=== PATIENT | female | born 1980 | race Caucasian/White ===

== ENCOUNTER 2022-02-19 18:24 | Emergency (ER) | payer BC, SELFPAY ==
--- NOTE | ~2022-02-19 | CT_ITS ---
EXAMINATION: CT abdomen pelvis wo con DATE: 02/19/2022 19:20 INDICATION: right flank pain TECHNIQUE: Computed tomography (CT) of the abdomen and pelvis was performed without intravenous contr ast. Automated exposure control and iterative reconstruction technique were employed. The dose-length product was 909.27 mGy-cm. COMPARISON: 01/30/2016. FINDINGS: Lower thorax: Moderate hiatal hernia Liver: Likely peripheral cyst or hemangioma in the right lobe. Biliary/Gallbladder: Gallbladder is absent. No bile duct dilation. Pancreas: No mass or duct dilation. Spleen: Normal. Adrenals:No mass. Kidneys: Mild right renal enlargement and perinephric stranding. Mild right hydronephrosis and periur eteral stranding. Punctate nonobstructing left lower pole calcification. GI tract: Prior gastric surgery No small or large bowel dilation. Normal appendix. Diverticulosis wit hout diverticulitis. Mesentery/Peritoneum: No ascites, mass, or free air. Retroperitoneum: No mass. Pelvis: 3 mm distal right ureteral calcification just proximal to the UVJ pelvic organs otherwise nor mal. Soft Tissues: Soft tissues and body wall unremarkable. Bones: No acute osseous finding. IMPRESSION: 3 mm distal right ureteral stone causing mild right obstructive uropathy. Reviewed, dictated and finalized at location K.
--- NOTE | 2022-02-19 18:32 | ED.ABDPAIN ---
HPI - Abdominal Pain General Chief Complaint: Urogenital-Female Stated Complaint: right side and back pain Time Seen by Provider: 02/19/22 18:26 Source: patient and RN notes reviewed Mode of arrival: ambulatory Limitations: no limitations History of Present Illness MD elicited complaint: flank pain Pertinent past history: kidney stones Onset (ago): hour(s) (2) Pain Consistency: intermittent Location: R flank Severity: moderate Quality: stabbing and sharp Radiation: RLQ Migration to: no migration Exacerbating factors: nothing Relieving factors: nothing Associated symptoms: nausea Related Data Home Medications Medication Instructions Recorded Confirmed ergocalciferol (vitamin D2) 1,250 1,250 mcg PO DAILY 02/19/22 02/19/22 mcg (50,000 unit) capsule loratadine 10 mg tablet 10 mg PO DAILY 02/19/22 02/19/22 omeprazole 20 mg capsule,delayed 20 mg PO DAILY 02/19/22 02/19/22 release Allergies Allergy/AdvReac Type Severity Reaction Status Date / Time Penicillins Allergy Mild FROM LABOR Verified 08/02/08 13:09 ORDERS ON 01-07-03 pcn Allergy Unknown Uncoded 10/11/02 13:53 Review of Systems Review of Systems: All systems reviewed & are unremarkable except as noted in HPI and below Constitutional: Constitutional: Denies chills and Denies fever(s) PMFSH Past Medical History Medical History (Updated 02/19/22 @ 19:44 by Jann Koroma MD) Anxiety GERD (gastroesophageal reflux disease) Kidney stones Surgical History Surgical History (Updated 02/19/22 @ 18:33 by Jann Koroma MD) Gastric bypass status for obesity Hx of cholecystectomy Social History Social History (Updated 02/19/22 @ 18:55 by Jann Koroma MD) Smoking status: Never smoker Exam Const: General: healthy appearing, no acute distress, alert and ill appearing acutely ( appears in pain) Nutritional Appearance: well nourished and obese Orientation/consciousness: patient oriented x3 HENMT: Head: normal to inspection Ears: external ears normal Eyes: Conjunctivae: conjunctivae normal Pupils: Equal, round and reactive pupils present EOM: EOMs intact bilaterally Neck: Neck: normal visual inspection Resp: Effort & Inspection: normal respiratory effort Auscultation: clear to auscultation bilaterally Cardio: Rate: regular rate Rhythm: regular rhythm GI: GI Palp: Yes Soft to palpation and No Tenderness to palpation present (GI) Auscultation: normal bowel sounds Back/Spine/Pelvis: Back: CVA tenderness ( moderate on the right) Cervical Spine: cervical ROM normal Thoracic/Lumbar Spine: thoraco-lumbar ROM normal Skin: General skin exam: normal color Rashes: no rashes Neuro: General: patient oriented x3, moves all extremities, no focal motor deficits and CN's II-XI intact bilaterally Speech: normal speech Gait exam (Neuro): Normal gait present Extrem: General: normal to inspection and no clubbing, cyanosis or edema Psych: Mental Status: mental status grossly normal Affect: normal affect Attitude: cooperative Course Vital Signs Vital signs: Vital Signs Temperature 36.4 C L 02/19/22 18:35 Pulse Rate 77 02/19/22 18:35 Respiratory Rate 24 H 02/19/22 18:35 Blood Pressure 185/131 H 02/19/22 18:35 Pulse Oximetry 100 02/19/22 18:35 Oxygen Delivery Room Air 02/19/22 18:35 Temperature 37.2 C 02/19/22 19:49 Pulse Rate 99 02/19/22 19:49 Respiratory Rate 20 02/19/22 19:49 Blood Pressure 148/90 H 02/19/22 19:49 Pulse Oximetry 96 02/19/22 19:49 Oxygen Delivery Room Air 02/19/22 19:49 MDM - Abdominal Pain Lab Data Attestation: I reviewed the patient's lab results. Result diagrams: 02/19/22 18:45 02/19/22 18:45 Labs: Lab Results 02/19/22 02/19/22 02/19/22 Range/Units 18:45 18:45 18:51 WBC 13.6 H (4.8-10.8) K/mm3 RBC 4.22 (4.20-5.40) M/mm3 Hgb 12.7 (12.0-15.0) g/dL Hct 38.6 (35.0-49.0) % MCV 91.5 (78.0-102.0) fL
[2022-02-19 18:35] VITALS: BP 185/131; PULSE 77; RESP 24; TEMP 36.4; O2SAT 100
[2022-02-19 18:47] LABS: Basophils Absolute Auto 0.08 K/mm3 (0.00-0.10); Basophils Percent Auto 0.6 % (0.0-1.0); Eosinophils Absolute Auto 0.22 K/mm3 (0.02-0.50); Eosinophils Percent Auto 1.6 % (1.0-6.0); Hematocrit 38.6 % (35.0-49.0); Hemoglobin 12.7 g/dL (12.0-15.0); Immature Granulocyte Absolute 0.04 K/mm3 (0.00-0.00); Immature Granulocyte Percent A 0.3 % (0.0-0.0); Lymphocytes Absolute Auto 4.19 K/mm3 (1.10-4.50); Lymphocytes Percent Auto 30.9 % (18.0-42.0); Mean Corpuscular HGB Conc 32.9 g/dL (32.0-36.0); Mean Corpuscular Hemoglobin 30.1 pg (27.0-31.0); Mean Corpuscular Volume 91.5 fL (78.0-102.0); Mean Platelet Volume 10.3 fl (9.2-11.8); Monocytes Absolute Auto 0.81 K/mm3 (0.10-0.90); Neutrophils Absolute Auto 8.2 K/mm3 (1.7-7.2); Neutrophils Percent Auto 60.6 % (50.0-70.0); Platelet Count Result 388 K/mm3 (150-420); Red Blood Count 4.22 M/mm3 (4.20-5.40); Red Cell Distribution Width 13.9 % (11.6-14.4); White Blood Count 13.6 K/mm3 (4.8-10.8)
[2022-02-19 18:54] LABS: Appearance Urine Slightly Cloudy (Clear); Bilirubin Urine 2+ (Negative); Blood Urine 3+ (Negative); Glucose Urine UA Negative (Negative); Ketones Urine 1+ (Negative); Leukocyte Esterase Ur Trace LEU/UL (Negative); Nitrate Urine Negative (Negative); Protein Urine 1+ (Negative); Specific Grav Ur >= 1.030 (1.010-1.020)
[2022-02-19] MEDS: KETOROLAC 30 MG/ML VIAL (*BKC) IM (18:58)
[2022-02-19] MEDS: ONDANSETRON HCL ODT 4 MG TABLET PO (18:58)
[2022-02-19 19:00] LABS: Add Urine Microscopic? YES; Color Urine Dark Yellow (Yellow)
[2022-02-19 19:01] LABS: Bacteria Urine 1+ /hpf; RBC Urine 21-50 /hpf (0-2); Squamous Epithelial Cell Urine Few /hpf (Few)
[2022-02-19 19:03] LABS: Alanine Aminotransferase 22 U/L (14-59); Albumin Level 3.8 g/dL (3.4-5.0); Alkaline Phosphatase 79 U/L (46-116); Anion Gap 8 mmol/L (8-16); Aspartate Amino Transferase 11 U/L (15-37); Bilirubin,Total 0.3 mg/dL (0.00-1.00); Blood Urea Nitrogen 11 mg/dL (7-18); CRP < 0.5 mg/dL (0.0-0.9); Calcium 8.7 mg/dL (8.5-10.1); Carbon Dioxide 25 mmol/L (21-32); Chloride 106 mmol/L (98-108); Estimated CRCL calculation 76 ml/min; Estimated Glomerular Filt Rate > 60; Glucose 101 mg/dL (70-99); Osmolality Calculated 287 mOsm/kg (285-295); Sodium 139 mmol/L (136-145); Total Protein 7.9 g/dL (6.4-8.2)
--- NOTE | 2022-02-19 19:08 | PC.NURSE ---
On 02/19/22, the student, [muna valle ], provided care and completed [facility] documentation on this patient. I have reviewed the student's documentation and agree with the findings.
[2022-02-19] MEDS: TAMSULOSIN HCL 0.4 MG CAPSULE PO (19:41)
[2022-02-19] MEDS: SULFAMETHOXAZOLE/TRIMETHOPRIM 800/160 MG DS TABLET 1 TAB PO (19:44)
[2022-02-19 19:49] VITALS: BP 148/90; PULSE 99; RESP 20; TEMP 37.2; O2SAT 96
== END 2022-02-19 19:51 | disposition home or self-care (01) ==
PROVIDERS: Emergency Provider Emergency Medicine; PCP Internal Medicine
DX: N20.1 Calculus of ureter (principal); N30.01 Acute cystitis with hematuria
CPT/HCPCS: 36415; 74176; 80053; 81001; 85025; 86140; 96372; 99284; A9270; J1885

== ENCOUNTER 2022-02-28 23:26 | Emergency (ER) | payer BC, SELFPAY ==
--- NOTE | ~2022-02-28 | CT_ITS ---
EXAMINATION: CT abdomen pelvis wo con DATE: 03/01/2022 00:58 INDICATION: Right flank pain TECHNIQUE: Computed tomography (CT) of the abdomen and pelvis was performed without intravenous contr ast. The dose-length product (DLP) was 1199.14 mGy-cm. Automated exposure control and iterative recon struction technique were employed. COMPARISON: 02/19/2022 FINDINGS: The lung bases are clear. The heart size is normal. There are surgical changes of the stoma ch. There is a small sliding hiatal hernia. The gallbladder is surgically absent. Cysts of the liver measure up to 7 mm in the left hepatic lobe. Punctate calcifications in an otherwise normal spleen li german represent healed granulomatous disease. The pancreas, and adrenal glands are normal. There is a 3 mm stone at the right ureterovesicular junction which causes moderate right hydroureteronephrosis. There is a 2 mm nonobstructing stone of the left kidney. No pathologically enlarged abdominal or pelv ic lymph nodes are identified. The appendix is normal There is no free intraperitoneal gas or evidenc e of bowel obstruction. Colonic diverticulosis is present without evidence of diverticulitis. A small bowel surgical anastomosis is noted in the left abdomen. IMPRESSION: 1. 3 mm stone at the right ureterovesicular junction causing moderate right hydroureteronephrosis. Reviewed, dictated and finalized at location A. [employer] IMPRESSION: 1. 3 mm stone at the right ureterovesicular junction causing moderate right hyd roureteronephrosis.
[2022-02-28 23:26] VITALS: BP 192/111; PULSE 80; RESP 18; TEMP 36.2; O2SAT 95
[2022-03-01 00:25] LABS: Add Urine Microscopic? YES; Appearance Urine Clear (Clear); Bilirubin Urine Negative (Negative); Blood Urine 2+ (Negative); Color Urine Yellow (Yellow); Glucose Urine UA Negative (Negative); Ketones Urine 2+ (Negative); Leukocyte Esterase Ur Trace LEU/UL (Negative); Nitrate Urine Negative (Negative); Protein Urine Negative (Negative); Specific Grav Ur >= 1.030 (1.010-1.020); Urobilinogen Urine 0.2 mg/dL (0.2-1.0)
[2022-03-01 00:33] LABS: Basophils Absolute Auto 0.08 K/mm3 (0.00-0.10); Basophils Percent Auto 0.5 % (0.0-1.0); Eosinophils Absolute Auto 0.07 K/mm3 (0.02-0.50); Eosinophils Percent Auto 0.5 % (1.0-6.0); Hematocrit 36.9 % (35.0-49.0); Immature Granulocyte Absolute 0.06 K/mm3 (0.00-0.00); Immature Granulocyte Percent A 0.4 % (0.0-0.0); Lymphocytes Absolute Auto 1.96 K/mm3 (1.10-4.50); Lymphocytes Percent Auto 12.9 % (18.0-42.0); Mean Corpuscular HGB Conc 32.5 g/dL (32.0-36.0); Mean Corpuscular Hemoglobin 30.5 pg (27.0-31.0); Mean Corpuscular Volume 93.9 fL (78.0-102.0); Mean Platelet Volume 10.2 fl (9.2-11.8); Monocytes Absolute Auto 0.87 K/mm3 (0.10-0.90); Monocytes Percent Auto 5.7 % (2.0-11.0); Neutrophils Absolute Auto 12.2 K/mm3 (1.7-7.2); Platelet Count Result 359 K/mm3 (150-420); Red Blood Count 3.93 M/mm3 (4.20-5.40); Red Cell Distribution Width 13.8 % (11.6-14.4); White Blood Count 15.3 K/mm3 (4.8-10.8)
[2022-03-01 00:39] LABS: Bacteria Urine 1+ /hpf; Calcium Oxalate Crystals Urine Present /hpf; Squamous Epithelial Cell Urine Moderate /hpf (Few)
[2022-03-01] MEDS: ONDANSETRON INJ 4 MG/2 ML VIAL IV PUSH (00:41)
[2022-03-01] MEDS: KETOROLAC (*BKC) 60 MG/2 ML VIAL IM (00:41)
[2022-03-01] MEDS: SODIUM CHLORIDE 0.9% IV 1,000 ML 999 ML IV CONT (00:41)
[2022-03-01 00:45] LABS: Pregnancy On Board Control Positive; Urine Pregnancy Test Negative
[2022-03-01 00:52] LABS: Alanine Aminotransferase 31 U/L (14-59); Albumin Level 3.8 g/dL (3.4-5.0); Alkaline Phosphatase 79 U/L (46-116); Anion Gap 11 mmol/L (8-16); Aspartate Amino Transferase 18 U/L (15-37); Bilirubin,Total 0.3 mg/dL (0.00-1.00); Blood Urea Nitrogen 18 mg/dL (7-18); Calcium 8.9 mg/dL (8.5-10.1); Carbon Dioxide 25 mmol/L (21-32); Chloride 105 mmol/L (98-108); Estimated Glomerular Filt Rate 49; Glucose 127 mg/dL (70-99); Lipase 91 U/L (73-393); Osmolality Calculated 295 mOsm/kg (285-295); Potassium 4.2 mmol/L (3.5-5.1); Sodium 141 mmol/L (136-145); Total Protein 7.7 g/dL (6.4-8.2)
[2022-03-01 00:55] LABS: Lactic Acid Reflex 1.1 mmol/L (0.4-2.0)
--- NOTE | 2022-03-01 01:03 | PC.NURSE ---
PT HAS RETURNED FROM CT, IVF INFUSING ORDERED WITHOUT DIFFICULTY. PT IS RESTLESS. HTN NOTED, ERP IS AWARE NO ORDERS AT THIS TIME. WILL CONTINUE TO MONITOR.
[2022-03-01 01:36] VITALS: BP 157/100; PULSE 86; RESP 18; O2SAT 99
--- NOTE | 2022-03-01 01:36 | ED.ABDPAIN ---
HPI - Abdominal Pain General Chief Complaint: Abdominal Pain Stated Complaint: PAIN Time Seen by Provider: 02/28/22 23:29 Source: patient and RN notes reviewed Mode of arrival: ambulatory Limitations: no limitations History of Present Illness MD elicited complaint: flank pain Pertinent past history: kidney stones Onset (ago): hour(s) (5) Pain Consistency: constant Location: R flank Severity: moderate Pain scale (0-10): 8 Quality: cramping and aching Migration to: no migration Exacerbating factors: nothing Relieving factors: medication Associated symptoms: denies other symptoms Related Data Patient : No Home Medications Medication Instructions Recorded Confirmed ergocalciferol (vitamin D2) 1,250 1,250 mcg PO DAILY 02/19/22 02/28/22 mcg (50,000 unit) capsule loratadine 10 mg tablet 10 mg PO DAILY 02/19/22 02/28/22 omeprazole 20 mg capsule,delayed 20 mg PO DAILY 02/19/22 02/28/22 release Allergies Allergy/AdvReac Type Severity Reaction Status Date / Time Penicillins Allergy Mild FROM LABOR Verified 02/28/22 23:29 ORDERS ON 01-07-03 pcn Allergy Unknown Unknown Uncoded 02/28/22 23:29 Review of Systems Review of Systems: All systems reviewed & are unremarkable except as noted in HPI and below Constitutional: Constitutional: Reports no additional constitutional complaints Eyes: Eyes: Reports no additional eye complaints ENT: Reports system reviewed and no additional complaints, except as documented Cardiovascular: Cardiovascular: Reports no additional cardiovascular complaints Respiratory: Respiratory: Reports no additional respiratory complaints Gastrointestinal: Comments: right flank pain Genitourinary: Genitourinary: Reports no additional female genitourinary complaints and Reports flank pain Musculoskeletal: Musculoskeletal: Reports no additional musculoskeletal complaints Integumentary/Breasts: Skin/Breast: Reports system reviewed and no additional complaints, except as docu Neurologic: Reports system reviewed and no additional complaints, except as documented Psychiatric: Psychiatric: Reports no additional psychiatric complaints Endocrine: Endocrine: Reports no additional endocrine complaints Hematologic/Lymphatic: Hematologic/Lymphatic: Reports no additional hematologic/lymphatic complaints Allergic/Immunologic: Allergic/Immunologic: Reports no additional allergic/immunologic complaints PMFSH Past Medical History Medical History Anxiety GERD (gastroesophageal reflux disease) Kidney stones Surgical History Surgical History Gastric bypass status for obesity Hx of cholecystectomy Social History Social History Smoking status: Never smoker Exam Const: General: no acute distress and well nourished Nutritional Appearance: well nourished Orientation/consciousness: patient oriented x3 Limitations: no limitations HENMT: Head: normal to inspection Ears: external ears normal, TM's normal bilaterally and EAC's normal Face/Nose/Sinus: Normal external nose present, Normal nares present, normal facial exam and sinuses nontender Face and sinus: normal facial exam and sinuses nontender Mouth: Yes Normal oral and palatal mucosa present and Yes moist mucous membranes Teeth and gingiva: dentition normal Throat: posterior oropharynx normal Eyes: Conjunctivae: conjunctivae normal Pupils: Equal, round and reactive pupils present EOM: EOMs intact bilaterally Neck: Neck: normal visual inspection, no lymphadenopathy and no meningeal signs Chest: Chest palpation & inspection: normal inspection of the chest Resp: Effort & Inspection: normal respiratory effort Auscultation: clear to auscultation bilaterally Cardio: Rate: regular rate Rhythm: regular rhythm GI: GI Palp: Yes Soft to palpation and No Tender
--- NOTE | 2022-03-01 01:37 | PC.NURSE ---
PT IS LYING ON STRETCHER WATCHING TV AT THIS TIME. IVF ALMOST COMPLETED. PT REPORTS SHE IS FEELING MUCH BETTER. PT IS RESTING, SKIN W-D-P. NAD NOTED. PT IS AWAITING RETURN CALL FROM [facility] AT THIS TIME. WILL CONTINUE TO MONITOR.
--- NOTE | 2022-03-01 01:39 | PC.NURSE ---
AFTER REPEAT BP, CLONIDINE ORDER IS HELD PER ERP.
[2022-03-01 02:54] VITALS: BP 148/98; PULSE 82; RESP 18; TEMP 36.7; O2SAT 98
--- NOTE | 2022-03-01 02:54 | PC.NURSE ---
at bedside. pt declines transfer to [facility], reports her urologist is at [facility] and she will contact them tomorrow, she does not want to be admitted due to her daughter having a cheer competition in the AM. risks to include sepsis and were explained to pt. she verbalized understanding. to transport pt home. ama form signed.
== END 2022-03-01 03:00 | disposition left against medical advice (07) ==
PROVIDERS: Emergency Provider Emergency Medicine; PCP Internal Medicine
DX: N20.0 Calculus of kidney (principal); N39.0 Urinary tract infection, site not specified
CPT/HCPCS: 36415; 74176; 80053; 81001; 81025; 83605; 83690; 85025; 96361; 96365; 96372; 96375; 99284; 99285; J0696; J1885; J2405; J7030

== ENCOUNTER 2022-04-09 07:30 | Outpatient (CLI) | payer BC, SELFPAY ==
--- NOTE | ~2022-04-09 | US_ITS ---
Renal-Bladder ultrasound Clinical History: Calculus of ureter Technique: Real-time sonographic imaging of the kidneys and urinary bladder was performed. Findings: The right kidney measures 12.0 cm in length and the left kidney measures 10.7 cm. There is no hydronephrosis or renal calculus identified. Renal cortical echogenicity is within normal limits. No renal mass lesion is identified. The urinary bladder is partially distended at the time of this exam. No intraluminal echoes are ident ified. No abnormal wall thickening is seen. Impression: Unremarkable ultrasound of the kidneys and urinary bladder. Reviewed, dictated and finalized at location M. OR SOFTWARE TESTER Impression: Unremarkable ultrasound of the kidneys and urinary bladder.
--- NOTE | ~2022-04-09 | XR_ITS ---
Supine and upright views of the abdomen Clinical history: Ureteral calculus Findings: Bowel gas pattern is nonspecific. Cholecystectomy clips noted. No evidence for obstruction or free air. No abnormal mass lesion or calcification is seen. Osseous structures are intact. Impression: No significant abnormality is seen. Reviewed, dictated and finalized at [facility]. Y SITTER Impression: No significant abnormality is seen.
--- NOTE | ~2022-04-09 | MM_ITS ---
EXAMINATION: MM screening carlo BI w gen HISTORY: Screening TECHNIQUE: Craniocaudal and mediolateral oblique 3-D tomosynthesis images were obtained and synthetic 2-D images were generated. CAD analysis was submitted and interpreted. COMPARISON: No prior mammogram is available for comparison at this institution. BREAST PARENCHYMAL COMPOSITION: The breasts are heterogeneously dense, which may obscure small masses FINDINGS: There is no evidence of suspicious mass, calcification, or architectural distortion to sugg est malignancy in either breast. There has been no suspicious interval change. IMPRESSION: 1. No mammographic evidence of malignancy. 2. Recommend routine screening mammography in one year. BI-RADS Category 1: Negative Reviewed, dictated and finalized at location A. BURSEMENT COORDINATOR
== END 2022-04-09 07:31 | disposition home or self-care (01) ==
LOC: CHSIMG 07:32
PROVIDERS: PCP Internal Medicine; Visit Provider Urology
DX: Z12.31 Encounter for screening mammogram for malignant neoplasm of breast (principal); N20.1 Calculus of ureter
CPT/HCPCS: 74018; 76770; 77063; 77067

== ENCOUNTER 2025-03-20 01:31 | Day surgery (SDC) | payer BC, SELFPAY ==
[2025-03-13 14:34] VITALS: BMI 31.8
--- NOTE | 2025-03-13 14:38 | SUR.PREOP ---
[facility] has started construction of its new state of the art ER which will open Spring 2026. With this, we anticipate parking may be a challenge for some our surgical patients and families. Parking spaces are limited but are available for all Surgical, obstetrics, and ER patients sharing this lot. If you arrive and find you are having a hard time finding a parking space, please note that we understand the challenges, please drive around the hospital and park near Hospital Entrance 1. When you enter this entrance, you can ask a volunteer to direct or take you back to the surgical waiting area to check in. We appreciate everyone?s understanding of these expected challenges while we build for your future. Report to the Outpatient Waiting Room, entrance under the green pavilion located off [address], at time 0600 on date 03/20/25. Planned Procedure Time: 0730.? Time changes happen often and if your time is changed the preop area will call you the afternoon before. - You and your visitor will be asked to self-screen and do not enter if you have any COVID symptoms. Please call surgeon if you need to reschedule. - A mask is optional within the hospital at this time. Patients may have clear liquids (water, carbonated beverages, clear teas, apple juice) until 3 hours prior to surgery with a maximum of 20 ounces. - No food from midnight until time of surgery and no smoking, or chewing tobacco (or any form of nicotine). No chewing gum, candy or mints. - Infants may have breast milk until 4 hours before surgery, formula 6 hours prior to surgery. - Children will be allowed to drink immediately following surgery.? If applicable, please bring a bottle or sippy cup to assist with drinking. Juice, water, soda, and popsicles are readily available.? For infants on formula, please bring formula the day of surgery.? Pacifiers are allowed. Take only the following medications with a SIP of water on the morning of surgery: n/a DO NOT STOP ANY OF YOUR OTHER PRESCRIPTION MEDICATIONS PRIOR TO SURGERY EXCEPT THE FOLLOWING Hold all vitamins and supplements for 3 days per anesthesiologist. Medications to discontinue per physician _do not take Omeprazole and Olmesartan on day of surgery. Do not take Zepbound for 10 days prior to surgery_ Date to take last dose Please no make-up, nail martiniquais, hairspray, perfume, deodorant, or body powder the day of surgery.? No jewelry (including any body piercings) or valuables the day of surgery, leave them at home.? Please take a shower or bath the night before, or the morning of, surgery with an antibacterial soap.? Wear comfortable, loose fitting clothing.? Children are encouraged to wear pajamas. - Jewelry must be removed prior to entering the operating room.? Rings and piercings that are not removed may be cut off. - The hospital will not accept responsibility for valuables.? - Please leave all valuables, including medications, at home the day of surgery. If you are going home after surgery, a licensed haul driver must drive you home.? - NO public transportation without another adult if you receive anesthesia. - We recommend that an adult stay with you for 24 hours following discharge. - We also recommend that you do not drive, make important decision, drink alcoholic beverages, or take any drugs that were not prescribed by your health care provider for at least 24 hours after your discharge time. For Pediatric surgeries, we recommend two adults accompany the child home. Follow any additional instructions given to you from your surgeon. Telephone instructions given to _patient_and asked if any additional questions and then verbalized understanding. Patient advised to call surgeon office or pre surgery nurse liaison [phone] if any additional questions.
[2025-03-20 07:10] VITALS: BP 153/98; PULSE 64; RESP 18; TEMP 37.1; O2SAT 100
[2025-03-20] MEDS: ACETAMINOPHEN 500 MG TABLET 1000 MG PO (07:10)
--- NOTE | 2025-03-20 07:29 | WPDHPUPDATE1 ---
History and Physical Update Update Date/Time: 03/20/25 07:29 History and Physical has been reviewed, including an updated exam of the patient. There are NO changes in the patient's condition. Risks, benefits, and alternatives have been discussed and questions answered. Patient agrees to proceed with procedure.
--- NOTE | 2025-03-20 07:29 | PM.HPGS ---
History of Present Illness History of Present Illness Consent: Risks, benefits, and alternatives have been discussed and questions answered. Patient agrees to proceed with procedure. Chief complaint: abnormal uterine bleeding Narrative: Christi Larson is a 45 year old female with a change in her cycles. Patient has been having a change in the frequency with cycles coming twice a month as well as very cycles. It was recommended to proceed with D&C hysteroscopy. Risks of possible pathology are discussed. Procedure was discussed with the risks infection, bleeding, and perforation. Patient voices understanding and agrees to proceed. Review of Systems Review of Systems: not repeated day of surgery; patient states no changes in status [facility] Past Medical History Medical History (Updated 03/20/25 @ 07:33 by Tiffany Michelle MD) (normal spontaneous vaginal delivery) Hiatal hernia History of hypertension History of depression GERD (gastroesophageal reflux disease) Kidney stones Anxiety Surgical History Surgical History Hx of cholecystectomy Gastric bypass status for obesity Social History Social History Smoking status: Never smoker Living arrangements: with family Spiritual care concerns: No Meds Home Medications and Allergies Home Medications ?Medication ?Instructions ?Recorded ?Confirmed ?Type omeprazole 20 mg capsule,delayed 20 mg PO DAILY 02/19/22 03/13/25 History release olmesartan 20 mg tablet 20 mg PO DAILY 03/13/25 03/13/25 History tirzepatide (weight loss) 2.5 2.5 mg subcut WEEKLY 03/13/25 03/13/25 History mg/0.5 mL subcutaneous pen injector (Zepbound) Allergies Allergy/AdvReac Type Severity Reaction Status Date / Time Penicillins Allergy Mild FROM LABOR Verified 03/13/25 14:33 ORDERS ON 01-07-03 Exam Const: General: healthy appearing, alert and obese (BMI 33) Orientation/consciousness: patient oriented x3 Resp: Effort & Inspection: normal respiratory effort Auscultation: clear to auscultation bilaterally Cardio: Rate: regular rate Rhythm: regular rhythm GI: GI Palp: Yes Soft to palpation, No Tenderness to palpation present (GI) and No Palpable mass present : External Female Exam: normal external appearance Speculum Exam - Vagina: normal appearance of the vagina and normal vaginal discharge Speculum Exam - Cervix: normal appearance of the cervix Bimanual exam- vagina & uterus: uterine size normal and consistency normal Bimanual Exam- Adnexa, other: normal adnexae and No adnexal tenderness Neuro: General: patient oriented x3 Assessment and Plan Assessment and plan (1) Menorrhagia: Code(s): N92.0 - Excessive and frequent menstruation with regular cycle Status: Acute Assessment and Plan: Plan to proceed with D&C hysteroscopy
--- NOTE | 2025-03-20 07:40 | WPDANESEPPF ---
Anes - Initial Pre Proc Eval Procedure: Operation Date: 03/20/25 09:00 Proposed Procedures p Hysteroscopy Dilation and Curettage - Tiffany Michelle MD Date/Time: 03/20/25 07:40 Surgeon: Tiffany Michelle MD Pre Op Diagnosis: abnormal uterine bleeding Patient Data Age: 45 Gender: F Height: 1.6 m Weight: 81.65 kg Allergies Allergy/AdvReac Type Severity Reaction Status Date / Time Penicillins Allergy Mild FROM LABOR Verified 03/13/25 14:33 ORDERS ON 01-07-03 Home Medications ?Medication ?Instructions ?Recorded ?Confirmed ?Type omeprazole 20 mg capsule,delayed 20 mg PO DAILY 02/19/22 03/13/25 History release olmesartan 20 mg tablet 20 mg PO DAILY 03/13/25 03/13/25 History tirzepatide (weight loss) 2.5 2.5 mg subcut WEEKLY 03/13/25 03/13/25 History mg/0.5 mL subcutaneous pen injector (Zepbound) Patient hx anesthesia problems: none Family hx anesthesia problems: hx of malignant hyperthermia Results Review: All pre-operative results and documents have been reviewed as part of the pre-operative evaluation. [facility] Past Medical History Medical History (normal spontaneous vaginal delivery) Hiatal hernia History of hypertension History of depression GERD (gastroesophageal reflux disease) Kidney stones Anxiety Surgical History Surgical History Hx of cholecystectomy Gastric bypass status for obesity Social History Social History Smoking status: Never smoker Living arrangements: with family Spiritual care concerns: No Anes - Eval Final PreProcedure Day of Procedure 03/20/25 07:40 Patient weight: obese Heart: regular rate and rhythm Lungs: clear to auscultation Airway: Mallampati scale class II Neurological: alert and oriented Last oral intake: >/= 8 hours ASA classification: II Emergent: no Anesthetic plan: proceed Anesthesia type and monitoring: general GIVS and standard monitoring Results Review: All pre-operative results and documents have been reviewed as part of the pre-operative evaluation. Informed Consent: The patient's anesthetic plan and its attendant risks and benefits were discussed with the patient/family/POA. Questions were solicited and answers provided to the satisfaction of the patient/family/POA.
[2025-03-20] MEDS: LACTATED RINGERS 1,000 ML 30 ML IV CONT (07:45)
[2025-03-20 07:56] LABS: BEDSIDEPREGUCG Negative (Negative)
[2025-03-20 08:00] VITALS: BMI 32.8
[2025-03-20 08:06] LABS: BEDSIDEPREGUCG Negative (Negative)
--- NOTE | 2025-03-20 08:35 | S_PTH ---
PATIENT: Christi Larson LOC: [facility] U#:[id number] AGE/SX: 45/F ROOM: RE03/20/[address]: Tiffany Michelle MD : 1980 BED: DIS: 03/20/2025 SPEC #: [id number] RECD: 03/20/25 10:56 STATUS: [place] REQ #: [id number] MYNOR: 03/20/25 08:[address]: Tiffany Michelle DEPT: [facility] Surgical RECD BY: Brielle Smalls ENTERED: 03/20/25 10:56 SP TYPE: Surgical OTHR DR: Lucius NunezMD Tissues: A - Endometrial Curettings Procedures: Hematoxylin and Eosin Stain Gross and Microscopic Level 4
[2025-03-20 08:41] VITALS: BP 147/95; PULSE 67; RESP 14; O2SAT 100
--- NOTE | 2025-03-20 08:52 | P.OP_ITS ---
Procedure Note - Detailed Date of Procedure 03/20/25 Pre-op Diagnosis abnormal uterine bleeding Post-op Diagnosis Same Procedure Performed D&C hysteroscopy Surgeon Tiffany Michelle MD Anesthesia MAC Findings The uterus sounds to 8cm and appears grossly normal. Description of Procedure The patient was taken to the operating room and placed under anesthesia in the dorsal lithotomy position. She was prepped and draped in the usual sterile fashion. [place] speculum was placed in the vagina and the cervix grasped on the anterior lip with tenaculum. The uterus is sounded to 8cm. The diagnostic hysteroscope was placed and with the above-stated findings it was removed. The endometrium was curetted with a sharp curette until a good uterine cry was noted in all areas. Instruments are removed. Sponge, needle, and instrument counts are correct per the OR staff. The patient was taken to recovery in stable condition. Estimated Blood Loss 5 Drains No Packing No Pathology Yes (Endometrial curettings) Complications No immediate complications Condition Stable Disposition PACU
[2025-03-20 09:10] VITALS: BP 151/87; PULSE 66
[2025-03-20 09:35] VITALS: BP 144/71; PULSE 59
== END 2025-03-20 09:49 | disposition home or self-care (01) ==
PROVIDERS: PCP Internal Medicine; Visit Provider Obstetrics & Gynecology Gynecology
PROC: 0U5B8ZZ Destruction of Endometrium, Via Natural or Artificial Opening Endoscopic (ICD-10-PCS; CPT 58563; principal; 2025-03-20 09:00)
DX: N92.0 Excessive and frequent menstruation with regular cycle (principal); E66.9 Obesity, unspecified; Z68.32 Body mass index [BMI] 32.0-32.9, adult
CPT/HCPCS: 58558; 88305; A9270; J2250; J2270; J2704; J7120